=== PATIENT | female | born 1990 | race Caucasian/White ===

== ENCOUNTER 2020-02-26 08:52 | Outpatient (REF) | payer MEDICAID, SELFPAY ==
[2020-02-26 09:24] LABS: MANUAL DIFF FLAG NO
[2020-02-26 09:44] LABS: Basophils Percent Auto 0.4 % (0-2); Eosinophils Absolute Auto 0.2 X10*3/uL (0.0-0.4); Eosinophils Percent Auto 4.7 % (0-4); Hematocrit 35.9 % (37-47); Hemoglobin 11.3 g/dl (12.0-16.0); Imm Gran Abs Auto 0.01 X10*3/uL (0.00-0.03); Imm Gran Pct Auto 0.2 % (0.0-0.4); Lymphocytes Absolute Auto 1.8 X10*3/uL (1.2-4.9); Lymphocytes Percent Auto 39.7 % (20-40); Mean Corpuscular HGB Conc 31.5 g/dl (31.0-35.0); Mean Corpuscular Volume 76.4 fL (80-98); Mean Platelet Volume 11.8 fL (9.4-12.3); Monocytes Absolute Auto 0.5 X10*3/uL (0.1-1.2); Monocytes Percent Auto 11.2 % (2-11); Neutrophils Percent Auto 43.8 % (45-73); Platelet Count 182 X10*3/uL (160-400); Red Cell Distribution Width 16.4 % (11.0-16.0); White Blood Count 4.5 X10*3/uL (4.8-10.8)
[2020-02-26 10:17] LABS: Alanine Aminotransferase 7 U/L (0-31); Albumin Level 4.4 g/dL (3.5-5.0); Alkaline Phosphatase 54 U/L (39-117); Anion Gap 13 (12-20); Aspartate Amino Transferase 14 U/L (5-31); Bilirubin Direct 0.2 mg/dL (0.0-0.5); Bilirubin Total 0.6 mg/dL (0.0-1.0); Blood Urea Nitrogen 12 mg/dL (9-16); Calcium 9.1 mg/dL (8.4-10.2); Carbon Dioxide 26 mmol/L (22-29); Chloride 103 mmol/L (96-108); Estimated Glomerular Filt Rate > 60; Glucose Random 86 mg/dL (60-115); Potassium 4.5 mmol/l (3.3-5.1); Sodium 137 mmol/L (135-145); Total Protein 7.4 g/dL (6.5-8.0)
== END 2020-02-26 08:53 | disposition home or self-care (01) ==
LOC: HO.LAB 08:52
PROVIDERS: PCP Student in an Organized Health Care Education/Training Program; Visit Provider Student in an Organized Health Care Education/Training Program
DX: E03.9 Hypothyroidism, unspecified (principal)
CPT/HCPCS: 36415; 80048; 80076; 85025

== ENCOUNTER 2020-03-26 13:38 | Outpatient (REF) | payer MEDICAID, SELFPAY ==
[2020-03-26 14:57] LABS: Free T4 (Free Thyroxine) 1.03 ng/dL (0.71-1.85); Thyroid Stimulating Hormone 0.93 uIU/mL (0.32-4.0)
== END 2020-03-26 13:39 | disposition home or self-care (01) ==
LOC: HO.LAB 13:38
PROVIDERS: PCP Student in an Organized Health Care Education/Training Program; Visit Provider Student in an Organized Health Care Education/Training Program
DX: E03.9 Hypothyroidism, unspecified (principal)
CPT/HCPCS: 36415; 82306; 84439; 84443

== ENCOUNTER 2020-04-07 12:57 | Outpatient (REF) | payer MEDICAID, SELFPAY ==
--- NOTE | 2020-04-07 | US_ITS ---
EXAMINATION: US THYROID CLINICAL INFORMATION: History of thyroid nodule. COMPARISON: None TECHNIQUE: Linear transducer ivey-scale and color Doppler examination with attention to the region of the thyroid. FINDINGS: SIZE: Measurements of the thyroid lobes and nodules are given in sagittal, anteroposterior and transverse dimensions respectively. Right Thyroid Lobe: 5.7 x 1.5 x 2.5 cm, volume 10.4 mL. Parenchyma: The gland echotexture is heterogeneous. Thyroid vascularity is normal. Left Thyroid Lobe: 6.1 x 1.2 x 1.9 cm, volume 6.9 mL. Parenchyma: The gland echotexture is heterogeneous. Thyroid vascularity is normal. Isthmus: 0.2 cm in maximum AP dimension. RIGHT THYROID LOBE: There are 3 nodules seen. 1. Location: Lower pole. Size: 0.4 x 0.2 x 0.5 cm. Nodule characteristics: Hypoechoic, smoothly marginated with no intranodular flow, likely complex cyst. 2. Location: Lower pole. Size: 0.4 x 0.3 x 0.3 cm. Nodule characteristics: Hypoechoic, smoothly marginated with no intranodular flow, likely complex cyst. 3. Location: Lower pole. Size: 0.4 x 0.2 x 0.3 cm. Nodule characteristics: Hypoechoic, smoothly marginated with no intranodular flow, likely simple cyst. ISTHMUS: No nodules. LEFT THYROID LOBE: There are 3 nodules seen. 1. Location: Upper pole. Size: 0.2 x 0.1 x 0.2 cm. Nodule characteristics: Hypoechoic, irregular-shaped with no intranodular flow.. 2. Location: Midpole. Size: 0.4 x 0.2 x 0.4 cm. Nodule characteristics: Hypoechoic, irregular-shaped with no intranodular flow.. 3. Location: Lower pole. Size: 0.5 x 0.3 x 0.4 cm. Nodule characteristics: Hypoechoic, smoothly marginated with no intranodular flow, likely simple cyst. NODES: No lymphadenopathy is seen in the tissue surrounding the thyroid gland. US/US thyroid IMPRESSION: Enlarged thyroid gland with multiple complex cysts and simple cysts as well. Recommend ultrasound followup in 1-2 years.
== END 2020-04-07 12:58 | disposition home or self-care (01) ==
LOC: HO.US 12:57
PROVIDERS: Visit Provider Emergency Medicine
DX: Z86.39 Personal history of other endocrine, nutritional and metabolic disease (principal)
CPT/HCPCS: 76536

== ENCOUNTER → 2020-04-30 07:49 | Outpatient (BNVA) | payer MEDICAID, SELFPAY | PROVIDERS: PCP Emergency Medicine; Visit Provider Internal Medicine Endocrinology, Diabetes & Metabolism | DX: E04.2 Nontoxic multinodular goiter (principal); R13.10 Dysphagia, unspecified; E55.9 Vitamin D deficiency, unspecified | CPT/HCPCS: 99202 ==

== ENCOUNTER 2020-04-30 08:38 | Outpatient (REF) | payer MEDICAID, SELFPAY ==
[2020-04-30 10:52] LABS: Free T4 (Free Thyroxine) 0.97 ng/dL (0.71-1.85); Thyroid Stimulating Hormone 1.08 uIU/mL (0.32-4.0)
[2020-05-01 10:02] LABS: Thyroglobulin Antibodies 353 IU/mL (< or = 1)
[2020-05-01 17:58] LABS: Thyroid Peroxidase Antibodies 629 IU/mL (<9)
== END 2020-04-30 08:39 | disposition home or self-care (01) ==
LOC: HO.10HDL 08:38
PROVIDERS: Visit Provider Internal Medicine Endocrinology, Diabetes & Metabolism
DX: E04.2 Nontoxic multinodular goiter (principal); R13.10 Dysphagia, unspecified
CPT/HCPCS: 36415; 84439; 84443; 86376; 86800

== ENCOUNTER 2020-06-05 08:30 | Outpatient (REF) | payer MEDICAID, SELFPAY ==
--- NOTE | ~2020-06-05 | FL_ITS ---
EXAMINATION: FL BARIUM SWALLOW CLINICAL INFORMATION: Dysphagia. COMPARISON: None. TECHNIQUE: Barium swallow examination is performed using fluoroscopic evaluation in addition to multiple fluoroscopic spot views. The patient is imaged both upright and prone and using both thick and thin sulfate along with effervescent granules. Fluoroscopy time: 1.3 minutes DAP: 4.170 Gycm2 Images: 52 FINDINGS: Following oral administration of thick barium, there is normal propagation of bolus from the oral cavity through the pharynx and esophagus and into the stomach without any evidence of obstruction, narrowing or stricture. The mucosal pattern of the stomach, duodenal bulb and the sweep is normal. The course, caliber and peristalsis of the esophagus are normal. On placing patient supine and in prone lying, there is minimal gastroesophageal reflux visualized. No hiatal hernia. FL/FL barium swallow IMPRESSION: Suspect minimal gastroesophageal reflux. Otherwise, unremarkable barium swallow exam.
== END 2020-06-05 08:31 | disposition home or self-care (01) ==
LOC: HO.XRAY 08:30
PROVIDERS: PCP Student in an Organized Health Care Education/Training Program; Visit Provider Internal Medicine Endocrinology, Diabetes & Metabolism
DX: R13.10 Dysphagia, unspecified (principal)
CPT/HCPCS: 74220

== ENCOUNTER → 2020-09-11 13:16 | Outpatient (BNVA) | payer MEDICAID, SELFPAY | PROVIDERS: PCP Student in an Organized Health Care Education/Training Program; Visit Provider Internal Medicine Endocrinology, Diabetes & Metabolism | DX: E04.2 Nontoxic multinodular goiter (principal); E55.9 Vitamin D deficiency, unspecified; E06.3 Autoimmune thyroiditis; R13.10 Dysphagia, unspecified | CPT/HCPCS: 99212 ==

== ENCOUNTER 2020-09-17 20:25 | Emergency (ER) | payer MEDICAID, SELFPAY ==
--- NOTE | ~2020-09-17 | XR_ITS ---
EXAMINATION: XR CHEST CLINICAL INFORMATION: Dyspnea COMPARISON: Chest x-ray February 23, 2019 TECHNIQUE: 2 views of the chest were obtained. FINDINGS: Cardiac silhouette is normal in size. Lungs are adequately aerated. No lobar consolidation. No pleural effusion or pneumothorax. Scoliotic changes of the spine. XR/XR chest 2V IMPRESSION: No acute pulmonary pathology.
[2020-09-17 20:37] VITALS: BP 92/69; PULSE 77; RESP 16; TEMP 36.2; O2SAT 99; BMI 23.0
--- NOTE | 2020-09-17 20:45 | ECG_ITS ---
Test Reason : CHEST PAIN Blood Pressure : / mmHG Vent. Rate : 076 BPM Atrial Rate : 076 BPM P-R Int : 132 ms QRS Dur : 082 ms QT Int : 356 ms P-R-T Axes : -24 068 022 degrees QTc Int : 400 ms Normal sinus rhythm Normal ECG No previous ECGs available Referred By: Generic ED Physician Electronically Signed By:SUNITA BURGER MD
== END 2020-09-17 22:36 | disposition left against medical advice (07) ==
PROVIDERS: Emergency Provider Emergency Medicine; PCP Student in an Organized Health Care Education/Training Program
DX: R07.9 Chest pain, unspecified (principal); R11.0 Nausea
CPT/HCPCS: 71046; 93005; 99283

== ENCOUNTER → 2021-01-22 14:35 | Outpatient (BNVA) | payer MEDICAID, SELFPAY | PROVIDERS: PCP Student in an Organized Health Care Education/Training Program; Visit Provider Internal Medicine | DX: E04.2 Nontoxic multinodular goiter (principal); E55.9 Vitamin D deficiency, unspecified; E06.3 Autoimmune thyroiditis | CPT/HCPCS: 99212 ==

== ENCOUNTER 2021-06-24 16:07 | Outpatient (REF) | payer MEDICAID, SELFPAY ==
[2021-06-24 17:36] LABS: Albumin Level 4.4 g/dL (3.5-5.0)
[2021-06-24 18:07] LABS: Free T4 (Free Thyroxine) 0.99 ng/dL (0.71-1.85); Thyroid Stimulating Hormone 1.17 uIU/mL (0.32-4.0); Vitamin D 25-OH Total 22.3 ng/mL (>30)
[2021-06-24 18:10] LABS: Vitamin D 25-OH Total 22.7 ng/mL (>30)
[2021-06-25 15:02] LABS: Calcium (PTHI) 9.2 mg/dL (8.6-10.2); PTHI 62 pg/mL (16-77)
== END 2021-06-24 16:08 | disposition home or self-care (01) ==
LOC: HO.LAB 16:07
PROVIDERS: Absent Provider Internal Medicine; PCP Student in an Organized Health Care Education/Training Program; Visit Provider Nurse Practitioner Gerontology
DX: E04.2 Nontoxic multinodular goiter (principal); E55.9 Vitamin D deficiency, unspecified
CPT/HCPCS: 36415; 82040; 82306; 83970; 84439; 84443

== ENCOUNTER → 2021-06-25 15:17 | Outpatient (BNVA) | payer MEDICAID, SELFPAY | PROVIDERS: PCP Student in an Organized Health Care Education/Training Program; Visit Provider Internal Medicine Endocrinology, Diabetes & Metabolism | DX: E06.3 Autoimmune thyroiditis (principal) | CPT/HCPCS: 99212 ==

== ENCOUNTER 2021-08-10 14:54 | Outpatient (REF) | payer MEDICAID, SELFPAY ==
--- NOTE | ~2021-08-10 | US_ITS ---
EXAMINATION: US PELVIS CLINICAL INFORMATION: Excessive and frequent menses; the last menstrual period was on 08/07/2021. COMPARISON: Pelvic ultrasound dated 12/08/2017. TECHNIQUE: Ultrasound of the pelvis is performed using both transabdominal and transvaginal transducers along with Doppler. Transvaginal imaging is performed due to inadequate visualization transabdominally. FINDINGS: Uterus: The uterus is anteverted and measures 8.5 x 4.0 x 6.5 cm. The uterus is retroverted. The double wall endometrial thickness is 1.2 mm. The uterus is smooth in contour and has normal myometrial echogenicity. No visible fibroid. Adnexa: Both ovaries are visualized. There is normal color flow to the adnexa. There is no ovarian torsion. There is no pelvic ascites or fluid collection. No adnexal mass is seen. Right ovary measures 3.8 x 2.3 x 2.6 cm, for a volume of 11.9 mL. The right ovary contains a 1.5 x 1.0 x 1.2 cm simple cyst. Left ovary measures 2.9 x 1.7 x 2.7 cm, for a volume olume of 6.9 mL. US/US pelvic and transvaginal IMPRESSION: A 1.5 cm simple right ovarian cyst is seen, with benign appearance. No ultrasound follow-up is recommended. The examination is otherwise unremarkable.
== END 2021-08-10 14:55 | disposition home or self-care (01) ==
LOC: HO.US 14:54
PROVIDERS: Visit Provider Advanced Practice Midwife
DX: N20.0 Calculus of kidney (principal)
CPT/HCPCS: 76830; 76856

== ENCOUNTER 2022-01-07 16:54 | Emergency (ER) | payer MEDICAID, SELFPAY ==
[2022-01-07 17:58] VITALS: BP 118/67; PULSE 98; RESP 16; TEMP 36.5; O2SAT 95; BMI 24.3
[2022-01-07 18:12] LABS: Basophils Percent Auto 0.6 % (0-2); Eosinophils Absolute Auto 0.1 X10*3/uL (0.0-0.4); Eosinophils Percent Auto 1.3 % (0-4); Hematocrit 36.4 % (37.0-47.0); Hemoglobin 11.6 g/dl (12.0-16.0); Imm Gran Abs Auto 0.01 X10*3/uL (0.00-0.03); Imm Gran Pct Auto 0.2 % (0.0-0.4); Lymphocytes Absolute Auto 2.1 X10*3/uL (1.2-4.9); Lymphocytes Percent Auto 39.7 % (20-40); MANUAL DIFF FLAG NO; Mean Corpuscular HGB Conc 31.9 g/dl (31.0-35.0); Mean Corpuscular Hemoglobin 24.3 pg (27.0-33.0); Mean Corpuscular Volume 76.2 fL (80.0-98.0); Mean Platelet Volume 11.5 fL (9.4-12.3); Monocytes Absolute Auto 0.7 X10*3/uL (0.1-1.2); Monocytes Percent Auto 13.6 % (2-11); Neutrophils Absolute Auto 2.4 x10*3/uL (2.0-8.3); Neutrophils Percent Auto 44.6 % (45-73); Platelet Count 219 X10*3/uL (160-400); Red Blood Count 4.78 X10*6/uL (4.20-5.50); Red Cell Distribution Width 14.8 % (11.0-16.0); White Blood Count 5.4 X10*3/uL (4.8-10.8)
[2022-01-07 18:31] LABS: Alanine Aminotransferase 8 U/L (0-31); Albumin Level 4.6 g/dL (3.5-5.0); Alkaline Phosphatase 61 U/L (39-117); Anion Gap 15 (12-20); Aspartate Amino Transferase 15 U/L (5-31); Bilirubin Total 0.4 mg/dL (0.0-1.0); Blood Urea Nitrogen 10 mg/dL (9-16); Calcium 9.6 mg/dL (8.4-10.2); Carbon Dioxide 27 mmol/L (22-29); Chloride 101 mmol/L (96-108); Creatinine Clr Calc Pharmacy 106.2; Estimated Glomerular Filt Rate > 60; Glucose Random 80 mg/dL (60-115); Potassium 4.1 mmol/L (3.3-5.1); Sodium 139 mmol/L (135-145); Total Protein 7.7 g/dL (6.5-8.0)
[2022-01-07 19:00] LABS: Appearance Urine Clear; Color Urine Yellow; Glucose Urine UA Negative (Negative); Leukocyte Esterase Urine Negative (Negative); Nitrite Urine Negative (Negative); Specific Gravity - Urine 1.015 (1.005-1.025); Urine Blood Negative (Negative); Urine Ketones Negative (Negative); Urine Protein Negative (Neg-Trace)
[2022-01-07 19:02] LABS: UPreg QC Valid YES; Urine Pregnancy NEGATIVE (NEGATIVE)
--- NOTE | 2022-01-07 21:30 | ED.BACK ---
HPI - Back Pain/Injury General Chief Complaint: Back Pain/Injury Stated Complaint: ?Kidney pain Time Seen by Provider: 01/07/22 21:12 Source: patient Mode of arrival: ambulatory Limitations: no limitations History of Present Illness HPI Narrative: 31-year-old female who presents with left lower back pain with radiation to the left hip the last 3 days with no known injury or trauma. Patient also reports some cramping in her left thigh with the pain. Patient denies any numbness in the groin. No bowel or bladder incontinence. No numbness, weakness, tingling lower extremities. Patient denies fevers or chills. Patient does report some discomfort when she urinates. No new sexual partners. She is sexually active with 1 male partner. No vaginal discharge, rashes or lesions Related Data Previous Rx's Medication Instructions Recorded cyclobenzaprine 10 mg tablet 10 mg PO TID PRN muscle spasm #10 01/07/22 tabs lidocaine 5 % topical patch 1 patch topical DAILY #15 ea 01/07/22 (Lidoderm) naproxen 500 mg tablet 500 mg PO BID PRN pain #30 tabs 01/07/22 Allergies Allergy/AdvReac Type Severity Reaction Status Date / Time SEAFOOD Allergy Severe ANGIOEDEMA Uncoded 06/25/21 15:23 Review of Systems Review of Systems: Yes all other systems are reviewed and are negative Constitutional: Constitutional: Reports no additional constitutional complaints, Denies body ache(s), Denies chills, Denies fever(s), Denies headache(s) and Denies weakness Eyes: Eyes: Reports no additional eye complaints and Denies change in vision ENT: Reports system reviewed and no additional complaints, except as documented, Denies dizziness, Denies headache(s), Denies nasal congestion, Denies nasal discharge and Denies neck pain Cardiovascular: Cardiovascular: Reports no additional cardiovascular complaints, Denies chest pain, Denies leg edema and Denies dyspnea Respiratory: Respiratory: Reports no additional respiratory complaints, Denies cough and Denies dyspnea Gastrointestinal: Gastrointestinal: Reports no additional gastrointestinal complaints, Denies abdominal pain, Denies diarrhea, Denies nausea and Denies vomiting Genitourinary: Genitourinary: Reports no additional female genitourinary complaints and Denies urinary incontinence Musculoskeletal: Musculoskeletal: Reports no additional musculoskeletal complaints, Reports back pain, Denies arthralgias, Denies joint swelling, Denies neck pain, Denies numbness and Denies tingling Integumentary/Breasts: Skin/Breast: Reports system reviewed and no additional complaints, except as docu and Denies rash Neurologic: Reports system reviewed and no additional complaints, except as documented, Denies Abnormal speech present, Denies dizziness, Denies headache(s), Denies numbness, Denies tingling and Denies weakness PMFSH Past Medical History Attestation statement: The following information was validated with the patient. Source: old records reviewed and nursing notes reviewed Medical History Dysphagia Harpal's disease Non-toxic multinodular goiter Vitamin D deficiency Surgical History Hx of section Family History Family History Father HTN (hypertension) Mother Arthritis Social History Social History Alcohol intake: never Patient Tobacco Use Status: Never used Tobacco Advance Directives: No Advance Directives Information Provided: No Physical Exam Vital Signs: Vital Signs: Last Vital Signs Temp 97.7 F 01/07/22 17:58 Pulse 98 01/07/22 17:58 Resp 16 01/07/22 17:58 BP 118/67 01/07/22 17:58 Pulse Ox 95 01/07/22 17:58 O2 Del Method 01/07/22 17:58 BMI result Body Mass Index 24.3 Const: General: cooperative, healthy appearing, comfortable and no acute distress Orientation/consciousness: patient oriented x3 Limitations: no limitations HEENT: Head: Yes normal to inspection Ears: hearing grossly normal bilaterally General nose exam: Normal external nose present Face and sinus: Yes normal facial exam Mouth: Normal oral and palatal mucosa present Throat: Yes posterior oropharynx normal Eyes: General: appearance normal, both eyes and all related structures Pupils: Equal, round and reactive pupils present Neck: Neck: Yes normal visual inspection Chest: Chest palpation & inspection: normal inspection of the chest Resp: Effort & Inspection: normal respiratory effort Auscultation: clear to auscultation bilaterally Cardio: Rate: regular rate Rhythm: regular rhythm Peripheral pulses: Peripheral pulses 2+ throughout GI: Inspection: Yes normal to inspection Palpation (GI): Soft to palpation and nontender Auscultation: normal bowel sounds : General: Yes no CVA tenderness Back/Spine/Pelvis: Other: Tenderness the lumbar soft tissue in the left side and over the posterior left SI joint with compression is worsened with straight leg raise on the left side Back: no CVA tenderness Thoracic/Lumbar Spine: thoracic and lumbar spine normal to inspection Skin: General skin exam: no rashes or lesions noted Neuro: General: patient oriented x3, no focal motor deficits and normal sensation to monofilament Cranial nerves: Yes CN's II-XII intact bilaterally, Yes Equal, round and reactive pupils present, Yes Bilaterally intact EOM present, Yes Nystagmus not present, Yes Normal facial strength present and Yes Midline tongue present Cognition (Neuro): normal cognition Speech: No Abnormal speech present Gait exam (Neuro): Normal gait present Motor exam (neuro): 5/5 motor strength present throughout Sensory Exam: Normal double simultaneous stimulation for sensation Extrem: General: Yes normal to inspection Course Course Course Narrative: Labs unremarkable. UA shows no signs of infection. Patient is not concern for STD exposure. Likely lumbar radiculopathy. Patient be discharged home with NSAID, muscle relaxant medicated patches. Reviewed worrisome signs and symptoms when to return to the emergency room. Comfortable discharge home MDM - Back Pain/Injury MDM Narrative Medical decision making narrative: 31 yo female here with 3 days of left lower back pain which radiates to the groin and into the left thigh. No focal abdominal pain on exam. Abdomen is soft nontender. Patient reports some discomfort with urination but no frequency, urgency, vaginal discharge, rashes or lesions. Normal neurological exam with no focal findings. Will check labs, UA, provide analgesia Likely lumbar radiculopathy, consider UTI, pyelo, renal colic Medical Records Attestation: I reviewed the patient's medical records. Lab Data Attestation: I reviewed the patient's lab results. Result diagrams: 01/07/22 18:07 01/07/22 18:07 Labs: Lab Results 01/07/22 01/07/22 01/07/22 Range/Units 18:07 18:07 18:52 WBC 5.4 (4.8-10.8) X10*3/uL RBC 4.78 (4.20-5.50) X10*6/uL Hgb 11.6 L (12.0-16.0) g/dl Hct 36.4 L (37.0-47.0) % MCV 76.2 L (80.0-98.0) fL MCH 24.3 L (27.0-33.0) pg MCHC 31.9 (31.0-35.0) g/dl RDW 14.8 (11.0-16.0) % Plt Count 219 (160-400) X10*3/uL MPV 11.5 (9.4-12.3) fL Immature Gran % (Auto) 0.2 (0.0-0.4) % Neut % (Auto) 44.6 L (45-73) % Lymph % (Auto) 39.7 (20-40) % [place] % (Auto) 13.6 H (2-11) % Eos % (Auto) 1.3 (0-4) % Baso % (Auto) 0.6 (0-2) % Lymph # (Auto) 2.1 (1.2-4.9) X10*3/uL [place] # (Auto) 0.7 (0.1-1.2) X10*3/uL Eos # (Auto) 0.1 (0.0-0.4) X10*3/uL Baso # (Auto) 0.0 (0.0-0.2) X10*3/uL Abs Immat Gran (auto) 0.01 (0.00-0.03) X10*3/uL Absolute Neuts (auto) 2.4 (2.0-8.3) x10*3/uL Absolute Nucleated RBC 0.000 (0.0-0.012) X10*3/uL Nucleated RBC % (auto) 0.0 (0.0-0.2) /100WBC Sodium 139 (135-145) mmol/L Potassium 4.1 (3.3-5.1) mmol/L Chloride 101 (96-108) mmol/L Carbon Dioxide 27 (22-29) mmol/L Anion Gap 15 (12-20) BUN 10 (9-16) mg/dL Creatinine 0.76 (0.5-1.4) mg/dL Estim Creat Clear Calc 106.2 Estimated GFR > 60 Random Glucose 80 (60-115) mg/dL Calcium 9.6 (8.4-10.2) mg/dL Total Bilirubin 0.4 (0.0-1.0) mg/dL AST 15 (5-31) U/L ALT 8 (0-31) U/L Alkaline Phosphatase 61 (39-117) U/L Total Protein 7.7 (6.5-8.0) g/dL Albumin 4.6 (3.5-5.0) g/dL Urine Color Yellow Urine Appearance Clear Urine pH 7.0 (5.0-9.0) Ur Specific [place] 1.015 (1.005-1.025) Urine Protein Negative (Neg-Trace) mg/dL Urine Glucose (UA) Negative (Negative) mg/dL Urine Ketones Negative (Negative) mg/dL Urine Blood Negative (Negative) Urine Nitrite Negative (Negative) Ur Leukocyte Esterase Negative (Negative) Urine Test (NEGATIVE) 01/07/22 Range/Units 18:52 WBC (4.8-10.8) X10*3/uL RBC (4.20-5.50) X10*6/uL Hgb (12.0-16.0) g/dl Hct (37.0-47.0) % MCV (80.0-98.0) fL MCH (27.0-33.0) pg MCHC (31.0-35.0) g/dl RDW (11.0-16.0) % Plt Count (160-400) X10*3/uL MPV (9.4-12.3) fL Immature Gran % (Auto) (0.0-0.4) % Neut % (Auto) (45-73) % Lymph % (Auto) (20-40) % [place] % (Auto) (2-11) % Eos % (Auto) (0-4) % Baso % (Auto) (0-2) % Lymph # (Auto) (1.2-4.9) X10*3/uL [place] # (Auto) (0.1-1.2) X10*3/uL Eos # (Auto) (0.0-0.4) X10*3/uL Baso # (Auto) (0.0-0.2) X10*3/uL Abs Immat Gran (auto) (0.00-0.03) X10*3/uL Absolute Neuts (auto) (2.0-8.3) x10*3/uL Absolute Nucleated RBC (0.0-0.012) X10*3/uL Nucleated RBC % (auto) (0.0-0.2) /100WBC Sodium (135-145) mmol/L Potassium (3.3-5.1) mmol/L Chloride (96-108) mmol/L Carbon Dioxide (22-29) mmol/L Anion Gap (12-20) BUN (9-16) mg/dL Creatinine (0.5-1.4) mg/dL Estim Creat Clear Calc Estimated GFR Random Glucose (60-115) mg/dL Calcium (8.4-10.2) mg/dL Total Bilirubin (0.0-1.0) mg/dL AST (5-31) U/L ALT (0-31) U/L Alkaline Phosphatase (39-117) U/L Total Protein (6.5-8.0) g/dL Albumin (3.5-5.0) g/dL Urine Color Urine Appearance Urine pH (5.0-9.0) Ur Specific [place] (1.005-1.025) Urine Protein (Neg-Trace) mg/dL Urine Glucose (UA) (Negative) mg/dL Urine Ketones (Negative) mg/dL Urine Blood (Negative) Urine Nitrite (Negative) Ur Leukocyte Esterase (Negative) Urine Test NEGATIVE (NEGATIVE) Discharge Plan Discharge Clinical Impression: Lumbar radiculopathy Patient Disposition: Home, Self-Care Instructions: Lumbar Radiculopathy (ED) Additional Instructions: Lab work and urine testing are normal Heat or ice to the area Gentle stretching No heavy lifting or bending Follow-up with primary care doctor for any persistent symptoms Prescriptions: New cyclobenzaprine 10 mg tablet 10 mg PO TID PRN (Reason: muscle spasm) Qty: 10 0RF naproxen 500 mg tablet 500 mg PO BID PRN (Reason: pain) Qty: 30 0RF lidocaine [Lidoderm] 5 % adhesive patch,medicated 1 patch topical DAILY Qty: 15 0RF Rx Instructions: leave on most painful area for up to 12 hrs Referrals: Angela Gonzalez MD [Primary Care Provider] - 5 days Stand Alone Forms: Work/School Release Discharge Date/Time: 01/07/22 23:00
[2022-01-07] MEDS: Ketorolac Tromethamine 60 MG/2 ML VIAL IM (22:03)
== END 2022-01-07 23:00 | disposition home or self-care (01) ==
PROVIDERS: Emergency Provider Emergency Medicine; PCP Student in an Organized Health Care Education/Training Program
DX: M54.16 Radiculopathy, lumbar region (principal); M25.552 Pain in left hip; Z79.899 Other long term (current) drug therapy
CPT/HCPCS: 36415; 80053; 81003; 81025; 85025; 96372; 99283; 99284; J1885

== ENCOUNTER 2022-02-03 15:39 | Outpatient (REF) | payer MEDICAID, SELFPAY ==
--- NOTE | ~2022-02-03 | XR_ITS ---
EXAMINATION: XR LUMBOSACRAL SPINE CLINICAL INFORMATION: Low back pain COMPARISON: Lumbar spine 12/27/2017. TECHNIQUE: Three views of the lumbosacral spine. FINDINGS: There is maintained lumbar lordosis. There is mild dextro scoliosis of thoracolumbar junction. The vertebral heights, alignment and disc heights are normal. No visible acute fracture, dislocation or lytic process seen. The SI joints are symmetrical. The paravertebral soft tissues are normal. XR/XR lumbar spine 2-3V IMPRESSION: Mild dextroscoliosis of thoracolumbar junction. No visible acute fracture, dislocation or lytic process seen. No change from previous lumbar spine exam 12/27/2017
--- NOTE | ~2022-02-03 | XR_ITS ---
EXAMINATION: XR SCOLIOSIS CLINICAL INFORMATION: Scoliosis COMPARISON: No direct comparisons. Correlation made with radiographs of the thoracic spine and lumbar spine dated 12/27/2017. TECHNIQUE: A single PA view of the thoracolumbar spine is obtained. FINDINGS: There are no intrinsic vertebral anomalies. There is spinal curvature as follows: Left convex thoracic curvature of 19 degrees, apex at T7-T8. Right convex thoracolumbar curvature of 36 degrees, apex at L1. There is no significant iliac crest height discrepancy. Risser 5. XR/XR scoliosis survey IMPRESSION: Spinal curvature as described.
== END 2022-02-03 15:40 | disposition home or self-care (01) ==
LOC: HO.XRAY 15:39
PROVIDERS: PCP Student in an Organized Health Care Education/Training Program; Visit Provider Internal Medicine
DX: M54.50 Low back pain, unspecified (principal); M54.6 Pain in thoracic spine; M41.9 Scoliosis, unspecified
CPT/HCPCS: 72082; 72100

== ENCOUNTER 2022-04-13 16:36 | Emergency (ER) | payer MEDICAID, SELFPAY ==
[2022-04-13 16:38] VITALS: BP 133/87; PULSE 88; RESP 20; TEMP 36.6; O2SAT 100; BMI 24.1
--- NOTE | 2022-04-13 16:39 | ED_ITS ---
HPI - Anxiety General Chief Complaint: General Medical Stated Complaint: Panic attack Related Data Previous Rx's Medication Instructions Recorded cyclobenzaprine 10 mg tablet 10 mg PO TID PRN muscle spasm #10 01/07/22 tabs lidocaine 5 % topical patch 1 patch topical DAILY #15 ea 01/07/22 (Lidoderm) naproxen 500 mg tablet 500 mg PO BID PRN pain #30 tabs 01/07/22 Allergies Allergy/AdvReac Type Severity Reaction Status Date / Time SEAFOOD Allergy Severe ANGIOEDEMA Uncoded 06/25/21 15:23 PMFSH Past Medical History Medical History Dysphagia Harpal's disease Non-toxic multinodular goiter Vitamin D deficiency Surgical History Hx of section Family History Family History Father HTN (hypertension) Mother Arthritis Social History Social History Alcohol intake: never Patient Tobacco Use Status: Never used Tobacco Advance Directives: No Advance Directives Information Provided: No Physical Exam Vital Signs: Vital Signs: Last Vital Signs Temp 97.9 F 04/13/22 16:38 Pulse 88 04/13/22 16:38 Resp 20 04/13/22 16:38 BP 133/87 04/13/22 16:38 Pulse Ox 100 04/13/22 16:38 O2 Del Method 04/13/22 16:38 BMI result Body Mass Index 24.1 Course Course Course Narrative: RME - 31 y/o Turkish speaking female with history of Hasimoto's disease s/p thyroidectomy who is presenting to the ER for evaluation of increased anxiety today. Not on meds at home. Reports associated chest pain and SOB as well as dizziness that has since resolved. VSS in triage and she appears well. She states she is no longer taking thyroid medication. Will check basic labs and TSH. Discharge Plan Discharge Clinical Impression: Anxiety Patient Disposition: Elopement Prescriptions: No Action cyclobenzaprine 10 mg tablet 10 mg PO TID PRN (Reason: muscle spasm) Qty: 10 0RF naproxen 500 mg tablet 500 mg PO BID PRN (Reason: pain) Qty: 30 0RF lidocaine [Lidoderm] 5 % adhesive patch,medicated 1 patch topical DAILY Qty: 15 0RF Rx Instructions: leave on most painful area for up to 12 hrs Discharge Date/Time: 04/13/22 21:29
== END 2022-04-13 21:29 | disposition left against medical advice (07) ==
LOC: HO.ED 21:27
PROVIDERS: Emergency Provider Emergency Medicine; PCP Student in an Organized Health Care Education/Training Program
DX: F41.0 Panic disorder [episodic paroxysmal anxiety] (principal); F41.1 Generalized anxiety disorder; F43.0 Acute stress reaction
CPT/HCPCS: 99281; 99283

== ENCOUNTER → 2022-05-20 15:38 | Outpatient (BNVA) | payer MEDICAID, SELFPAY | PROVIDERS: PCP Student in an Organized Health Care Education/Training Program; Visit Provider Internal Medicine Endocrinology, Diabetes & Metabolism | DX: E04.2 Nontoxic multinodular goiter (principal); E06.3 Autoimmune thyroiditis; E55.9 Vitamin D deficiency, unspecified; Z79.52 Long term (current) use of systemic steroids; Z79.899 Other long term (current) drug therapy; Z91.14 Patient's other noncompliance with medication regimen | CPT/HCPCS: 99212 ==

== ENCOUNTER 2022-06-29 07:08 | Emergency (ER) | payer MEDICAID, SELFPAY ==
--- NOTE | ~2022-06-29 | US_ITS ---
EXAMINATION: US OBSTETRICAL ULTRASOUND CLINICAL INFORMATION: Abdominal pain. 6 weeks . COMPARISON: None available.. LMP: 05/15/2022. Gestational age by maternal dates is 6 weeks 3 days. Estimated date of delivery by maternal dates is 02/19/2023. TECHNIQUE: Transabdominal and transvaginal first trimester OB ultrasound. Transvaginal exam was performed for better visualization of the gestational sac. FINDINGS: There is a single intrauterine gestational sac with visible yolk sac, embryo/fetus, and cardiac activity. There is no significant subchorionic hemorrhage or hematoma. HR: 110 beats per minute. CRL (crown rump length): 0.32 cm (6 weeks 0 days +/- 4 days). LAMBERTO (estimated date of delivery): 02/22/2023 +/- 4 days. MATERNAL ADNEXA: The right maternal ovary measures 3.5 x 2.6 x 2.9 cm. 1.7 x 2 x 1.7 cm cyst probably representing a corpus luteum The left maternal ovary measures 4.7 x 2 x 3.2 cm. There is no significant maternal adnexal mass. No maternal pelvic ascites. US/US OB pelvic and transvaginal IMPRESSION: 1. Single intrauterine gestation with ultrasound gestational age of 6 weeks 0 days +/- 4 days. 2. Estimated date of delivery is 02/22/2023 +/- 4 days. 3. No maternal adnexal mass or pelvic ascites.
[2022-06-29 07:49] VITALS: BP 107/65; PULSE 95; RESP 16; TEMP 36.8; O2SAT 100; BMI 25.0
--- NOTE | 2022-06-29 08:01 | ED.GENADULT ---
HPI - General Adult General Chief complaint: Nausea/Vomiting/Diarrhea Stated complaint: 6 wks preg/Vomiting/Dizziness Time Seen by Provider: 06/29/22 07:58 Source: patient Mode of arrival: ambulatory Limitations: no limitations History of Present Illness HPI narrative: Patient is a 31 year old assigned female at with a history of neel's disease presenting to the emergency department today with nausea and vomiting. Patient states that she is 6 weeks and over the last 24 hours has had mild abdominal pain with nausea and vomiting. Patient denies any dizziness, lightheadedness, fever, chills, blurry vision, double vision, loss of vision, chest pain, difficulty breathing, shortness of breath, back pain, night sweats, pain with urination, increased urinary frequency, increased urinary urgency, blood in her urine or stool, syncope or a near syncopal episode, recent trauma or falls, bowel incontinence, bladder incontinence, bowel retention, bladder retention, or any other complaints at this time. Onset (ago): day(s) Severity: mild Severity scale (1-10): 2 Relieving factors: none Exacerbating factors: none Associated symptoms: nausea/vomiting Treatments prior to arrival: none Related Data Home Medications Medication Instructions Recorded Confirmed doxycycline hyclate 100 mg tablet 100 mg PO BID 05/20/22 empty container (Sharps Container) miscellaneous 05/20/22 enoxaparin 30 mg/0.3 mL 30 mg subcut DAILY 05/20/22 subcutaneous syringe estradiol 2 mg tablet 2 mg PO BID 05/20/22 fatty acid no.6-fish ml IV 05/20/22 put-ybpvoxxs-bxfyhnsclpzzq, egg 10 % IV emulsion (Omegaven) follitropin beta 300 unit/0.36 mL 150 unit subcut QPM 05/20/22 subcutaneous cartridge (Follistim AQ) ganirelix 250 mcg/0.5 mL mcg subcut DAILY 05/20/22 subcutaneous syringe meloxicam 15 mg tablet 15 mg PO DAILY 05/20/22 metformin 500 mg tablet,extended 500 mg PO DAILY 05/20/22 release 24 hr methocarbamol 500 mg tablet 500 mg PO QID 05/20/22 morphine ER 80 mg-naltrexone 3.2 1 cap PO 05/20/22 mg capsule, extend release, oral only needle (disp) 22 G 22 gauge x 1 #1,000 ea 05/20/2203/22 (BD Regular Bevel Avilla) prednisone 5 mg tablet 5 mg PO BID 05/20/22 syringe with needle 3 mL 18 x 1 #100 ea 05/20/2203/22 (BD Luer-Devin Syringe) Previous Rx's Medication Instructions Recorded cyclobenzaprine 10 mg tablet 10 mg PO TID PRN muscle spasm #10 01/07/22 tabs lidocaine 5 % topical patch 1 patch topical DAILY #15 ea 01/07/22 (Lidoderm) naproxen 500 mg tablet 500 mg PO BID PRN pain #30 tabs 01/07/22 metoclopramide HCl 10 mg tablet 10 mg PO Q6H PRN nausea and 06/29/22 (Reglan) vomiting #10 tabs Allergies Allergy/AdvReac Type Severity Reaction Status Date / Time SEAFOOD Allergy Severe ANGIOEDEMA Uncoded 05/20/22 15:45 Review of Systems Constitutional: Constitutional: Reports no additional constitutional complaints, Denies chills, Denies fever(s) and Denies night sweats Eyes: Eyes: Reports no additional eye complaints, Denies blurry vision, Denies change in vision, Denies diplopia, Denies eye discharge, Denies loss of vision and Denies eye pain ENT: Denies dizziness Cardiovascular: Cardiovascular: Reports no additional cardiovascular complaints, Denies chest pain, Denies lightheadedness, Denies Loss of Consciousness and Denies dyspnea Respiratory: Respiratory: Reports no additional respiratory complaints and Denies dyspnea Gastrointestinal: Gastrointestinal: Reports no additional gastrointestinal complaints, Reports abdominal pain, Denies melena, Denies hematochezia, Denies change in bowel habits, Denies change in stool character, Reports nausea and Reports vomiting Genitourinary: Genitourinary: Denies hematuria, Denies urinary frequency, Denies dysuria, Denies urinary incontinence, Denies urinary hesitancy and Denies urinary urgency Musculoskeletal: Musculoskeletal: Reports no additional musculoskeletal complaints, Denies numbness and Denies tingling Neurologic: Denies dizziness, Denies loss of vision, Denies numbness and Denies tingling Psychiatric: Psychiatric: Reports no additional psychiatric complaints Endocrine: Endocrine: Reports no additional endocrine complaints Hematologic/Lymphatic: Hematologic/Lymphatic: Reports no additional hematologic/lymphatic complaints Allergic/Immunologic: Allergic/Immunologic: Reports no additional allergic/immunologic complaints PMFSH Past Medical History Attestation statement: The following information was validated with the patient. Source: old records reviewed and nursing notes reviewed Medical History Dysphagia Neel's disease Non-toxic multinodular goiter Vitamin D deficiency Surgical History Hx of section Family History Family History Father HTN (hypertension) Mother Arthritis Social History Social History Household Members: Children Alcohol intake: unknown Patient Tobacco Use Status: Never used Tobacco Use of substances other than those prescribed or required for medical reasons: Unknown Advance Directives: No Advance Directives Information Provided: Yes Patient : Yes Physical Exam ED Vital Signs: Vital Signs - 24 hr 06/29/22 07:49 Temperature 98.3 F Pulse Rate 95 Respiratory Rate 16 Blood Pressure 107/65 Pulse Oximetry 100 Oxygen Delivery Method Room Air BMI result Body Mass Index 25.0 Const General: cooperative, no acute distress, alert and awake Nutritional Appearance: well nourished Orientation/consciousness: patient oriented x3 Limitations: no limitations HENMT Head: Yes normal to inspection and Yes atraumatic Ears: hearing grossly normal bilaterally and external ears normal General nose exam: Normal external nose present, no nasal discharge noted and no epistaxis Face and sinus: Yes normal facial exam, No abrasion and No laceration Mouth: Normal oral and palatal mucosa present, no drooling and no muffled voice Eyes General: appearance normal, both eyes and all related structures Periorbital: periorbital findings normal Eyelids: Yes eyelids normal Conjunctivae: conjunctivae normal Pupils: Equal, round and reactive pupils present EOM: EOMs intact bilaterally Neck Neck: Yes normal visual inspection, Yes full ROM and Yes no lymphadenopathy Chest Chest palpation & inspection: normal inspection of the chest Resp Effort & Inspection: normal respiratory effort and able to speak in complete sentences GI Inspection: Yes normal to inspection Neuro General: patient oriented x3 and moves all extremities Cranial nerves: Yes Equal, round and reactive pupils present Cognition (Neuro): normal cognition Motor exam (neuro): 5/5 motor strength present throughout Sensory Exam: Normal double simultaneous stimulation for sensation Coordination: [id number] test normal Extrem General: Yes normal to inspection, Yes full ROM and Yes capillary refill normal Psych Appearance: grossly normal Mental Status: mental status grossly normal Affect: normal affect Attitude: cooperative Thought process: Normal thought process present Thought content: Normal thought content present Insight: Good insight present (Psych) Medications Administered Discontinued Medications Generic Name Dose Route Start Last Admin Trade Name Lindsay PRN Reason Stop Dose Admin Sodium Chloride 1,000 mls @ 999 mls/hr 06/29/22 08:15 06/29/22 09:30 Ns IV 06/29/22 09:15 Infused .Q1H1M KENAN Infusion Ondansetron HCl 4 mg 06/29/22 08:02 06/29/22 08:25 Ondansetron Hcl 4 Mg/2 Ml Vial IVPUSH 06/29/22 08:03 4 mg ONCE ONE Administration Medical Decision Making Medical Decision Making [facility] Narrative: Patient is a 31 year old assigned female at with a history of neel's disease presenting to the emergency department today with nausea, vomiting, and vague abdominal pain. Patient's physical exam was unremarkable. Patient's blood work was unremarkable. Patient's OB US showed an interuterine and no acute process. I explained my physical exam findings as well as all test results to the patient. I answered all questions asked by the patient. I stressed the importance of the patient taking her medication as prescribed. I stressed the importance of the patient following up with her primary care provider and her OBGYN. I stressed the importance of the patient returning to the emergency department immediately if her symptoms were to worsen or if she were to develop any dizziness, shortness of breath, difficulty breathing, chest pain, blurry vision, loss of vision, nausea, vomiting, abdominal pain, fever, chills, back pain, or any other complaints. Patient verbalized agreement and understanding with this treatment plan and discharge. Differential Diagnosis Differential Diagnoses: The differential diagnosis associated with the presentation includes , nausea, vomiting Lab Data [facility] Lab Attestation statement: I reviewed the patient's lab results. 06/29/22 08:15 06/29/22 08:15 Labs: Lab Results 06/29/22 06/29/22 06/29/22 Range/Units 07:00 08:15 08:15 WBC 5.9 (4.8-10.8) X10*3/uL RBC 5.09 (4.20-5.50) X10*6/uL Hgb 12.9 (12.0-16.0) g/dl Hct 39.6 (37.0-47.0) % MCV 77.8 L (80.0-98.0) fL MCH 25.3 L (27.0-33.0) pg MCHC 32.6 (31.0-35.0) g/dl RDW 20.5 H (11.0-16.0) % Plt Count 177 (160-400) X10*3/uL MPV 10.5 (9.4-12.3) fL Immature Gran % (Auto) 0.3 (0.0-0.4) % Neut % (Auto) 74.9 H (45-73) % Lymph % (Auto) 14.4 L (20-40) % [place] % (Auto) 8.7 (2-11) % Eos % (Auto) 1.4 (0-4) % Baso % (Auto) 0.3 (0-2) % Lymph # (Auto) 0.9 L (1.2-4.9) X10*3/uL [place] # (Auto) 0.5 (0.1-1.2) X10*3/uL Eos # (Auto) 0.1 (0.0-0.4) X10*3/uL Baso # (Auto) 0.0 (0.0-0.2) X10*3/uL Abs Immat Gran (auto) 0.02 (0.00-0.03) X10*3/uL Absolute Neuts (auto) 4.4 (2.0-8.3) x10*3/uL Absolute Nucleated RBC 0.000 (0.0-0.012) X10*3/uL Nucleated RBC % (auto) 0.0 (0.0-0.2) /100WBC Sodium 138 (135-145) mmol/L Potassium 4.1 (3.3-5.1) mmol/L Chloride 104 (96-108) mmol/L Carbon Dioxide 27 (22-29) mmol/L Anion Gap 11 L (12-20) BUN 10 (9-16) mg/dL Creatinine 0.73 (0.5-1.4) mg/dL Estim Creat Clear Calc 110.5 Estimated GFR > 60 Random Glucose 86 (60-115) mg/dL Calcium 8.9 D (8.4-10.2) mg/dL Magnesium 2.0 (1.6-2.6) mg/dL Total Bilirubin 0.6 (0.0-1.0) mg/dL AST 18 (5-31) U/L ALT 41 H (0-31) U/L Alkaline Phosphatase 59 (39-117) U/L Total Protein 6.7 (6.5-8.0) g/dL Albumin 3.9 (3.5-5.0) g/dL Beta HCG, Quant 69811 mIU/mL COVID-19 (ASHISH) Negative (Negative) COVID-19 Clin Com See Note Independent Interpretation I performed an independent interpretation of an: Ultrasound Interpretation: My interpretation is in agreement with the radiologist's impression of this imaging study. EXAMINATION:? US OBSTETRICAL ULTRASOUND CLINICAL INFORMATION:? Abdominal pain. 6 weeks . COMPARISON:? None available..? LMP: 05/15/2022. Gestational age by maternal dates is 6 weeks 3 days. Estimated date of delivery by maternal dates is 02/19/2023. TECHNIQUE: Transabdominal and transvaginal first trimester OB ultrasound. Transvaginal exam was performed for better visualization of the gestational sac. ? FINDINGS: There is a single intrauterine gestational sac with visible yolk sac, embryo/fetus, and cardiac activity.? There is no significant subchorionic hemorrhage or hematoma. HR:? 110 beats per minute. CRL (crown rump length): ? 0.32 cm (6 weeks 0 days +/- 4 days). LAMBERTO (estimated date of delivery):? 02/22/2023 +/- 4 days. ? MATERNAL ADNEXA: ? ? The right maternal ovary measures 3.5 x 2.6 x 2.9 cm.? 1.7 x 2 x 1.7 cm cyst probably representing a corpus luteum The left maternal ovary measures 4.7 x 2 x 3.2 cm. There is no significant maternal adnexal mass.? No maternal pelvic ascites. US/US OB pelvic and transvaginal IMPRESSION: 1. Single intrauterine gestation with ultrasound gestational age of? 6 weeks 0 days +/- 4 days. 2. Estimated date of delivery is 02/22/2023 +/- 4 days. 3. No maternal adnexal mass or pelvic ascites. Dictated By: Lindsay Calderon MD Signed By: Electronically signed by Lindsay Calderon MD 06/29/22 0948 Discharge Plan Discharge Clinical Impression: First trimester Patient Disposition: Home, Self-Care Instructions: (ED) Additional Instructions: Follow up with your primary care provider and your OBGYN. Return to the emergency department immediately if your symptoms worsen or if you develop any dizziness, shortness of breath, difficulty breathing, chest pain, blurry vision, loss of vision, nausea, vomiting, abdominal pain, fever, chills, back pain, or any other complaints. Charis un seguimiento con simms proveedor de atenci?n primaria y simms obstetra y ginec?logo. Regrese al departamento de emergencias de inmediato si marycarmen s?ntomas empeoran o si presenta mareos, falta de aire, dificultad para respirar, dolor de pecho, visi?n borrosa, p?rdida de la visi?n, n?useas, v?mitos, dolor abdominal, fiebre, escalofr?os, dolor de espalda o cualquier otras quejas. Prescriptions: New metoclopramide HCl [Reglan] 10 mg tablet 10 mg PO Q6H PRN (Reason: nausea and vomiting) Qty: 10 0RF No Action cyclobenzaprine 10 mg tablet 10 mg PO TID PRN (Reason: muscle spasm) Qty: 10 0RF naproxen 500 mg tablet 500 mg PO BID PRN (Reason: pain) Qty: 30 0RF lidocaine [Lidoderm] 5 % adhesive patch,medicated 1 patch topical DAILY Qty: 15 0RF Rx Instructions: leave on most painful area for up to 12 hrs Follistim AQ 300 unit/0.36 mL cartridge 150 unit subcut QPM Omegaven 10 % emulsion IV ganirelix 250 mcg/0.5 mL syringe subcut DAILY enoxaparin 30 mg/0.3 mL syringe 30 mg subcut DAILY (DME) BD Regular Bevel Avilla 22 gauge x 1 1/2 needle See Rx Instructions .ROUTE .MEDSUPPLY Qty: 1000 Rx Instructions: As directed estradiol 2 mg tablet 2 mg PO BID prednisone 5 mg tablet 5 mg PO BID (DME) BD Luer-Devin Syringe 3 mL 18 x 1 1/2 syringe See Rx Instructions .ROUTE .MEDSUPPLY Qty: 100 Rx Instructions: As directed meloxicam 15 mg tablet 15 mg PO DAILY methocarbamol 500 mg tablet 500 mg PO QID morphine-naltrexone 80-3.2 mg capsule,oral only,ext.rel abhinav 1 cap PO metformin 500 mg tablet extended release 24 hr 500 mg PO DAILY doxycycline hyclate 100 mg tablet 100 mg PO BID Sharps Container Misc miscellaneous Referrals: Angela Gonzalez MD [Primary Care Provider] - Stand Alone Forms: Work/School Release Print Language: Nepali
[2022-06-29 08:21] LABS: MANUAL DIFF FLAG NO
[2022-06-29 08:23] LABS: Basophils Percent Auto 0.3 % (0-2); Eosinophils Absolute Auto 0.1 X10*3/uL (0.0-0.4); Eosinophils Percent Auto 1.4 % (0-4); Hematocrit 39.6 % (37.0-47.0); Hemoglobin 12.9 g/dl (12.0-16.0); Imm Gran Abs Auto 0.02 X10*3/uL (0.00-0.03); Imm Gran Pct Auto 0.3 % (0.0-0.4); Lymphocytes Absolute Auto 0.9 X10*3/uL (1.2-4.9); Lymphocytes Percent Auto 14.4 % (20-40); Mean Corpuscular HGB Conc 32.6 g/dl (31.0-35.0); Mean Corpuscular Hemoglobin 25.3 pg (27.0-33.0); Mean Corpuscular Volume 77.8 fL (80.0-98.0); Mean Platelet Volume 10.5 fL (9.4-12.3); Monocytes Absolute Auto 0.5 X10*3/uL (0.1-1.2); Monocytes Percent Auto 8.7 % (2-11); Neutrophils Absolute Auto 4.4 x10*3/uL (2.0-8.3); Neutrophils Percent Auto 74.9 % (45-73); Platelet Count 177 X10*3/uL (160-400); Red Blood Count 5.09 X10*6/uL (4.20-5.50); Red Cell Distribution Width 20.5 % (11.0-16.0); White Blood Count 5.9 X10*3/uL (4.8-10.8)
[2022-06-29] MEDS: ondansetron HCL 4 MG/2 ML VIAL IVPUSH (08:25)
[2022-06-29] MEDS: 0.9 % Sodium Chloride 1,000 ML 999 ML IV (08:25)
[2022-06-29 08:35] LABS: COVID-19 Test Negative (Negative); IDNOW Serial# BCCEAD1C
[2022-06-29 08:44] LABS: Alanine Aminotransferase 41 U/L (0-31); Albumin Level 3.9 g/dL (3.5-5.0); Alkaline Phosphatase 59 U/L (39-117); Anion Gap 11 (12-20); Aspartate Amino Transferase 18 U/L (5-31); Bilirubin Total 0.6 mg/dL (0.0-1.0); Blood Urea Nitrogen 10 mg/dL (9-16); Calcium 8.9 mg/dL (8.4-10.2); Carbon Dioxide 27 mmol/L (22-29); Chloride 104 mmol/L (96-108); Creatinine Clr Calc Pharmacy 110.5; Estimated Glomerular Filt Rate > 60; Glucose Random 86 mg/dL (60-115); Potassium 4.1 mmol/L (3.3-5.1); Sodium 138 mmol/L (135-145); Total Protein 6.7 g/dL (6.5-8.0)
[2022-06-29 09:00] LABS: HCG Quantitative 39368 mIU/mL
--- NOTE | 2022-06-29 10:17 | PC.NURSE ---
pt agreeable to pending discharge, no nausea ,vomiting no current abd cramping, no bleeding.
== END 2022-06-29 10:21 | disposition home or self-care (01) ==
PROVIDERS: Physician Assistant Medical; Emergency Provider Emergency Medicine; PCP Student in an Organized Health Care Education/Training Program
DX: O21.0 Mild hyperemesis gravidarum (principal); R10.2 Pelvic and perineal pain; Z3A.01 Less than 8 weeks gestation of pregnancy; Z79.899 Other long term (current) drug therapy; Z20.822 Contact with and (suspected) exposure to COVID-19; Z20.828 Contact with and (suspected) exposure to other viral communicable diseases
CPT/HCPCS: 76801; 76817; 80053; 83735; 84702; 85025; 87635; 96361; 96374; 99284; J2405

== ENCOUNTER 2023-06-30 11:02 | Outpatient (REF) | payer MEDICAID, SELFPAY ==
[2023-06-30 15:44] LABS: Alanine Aminotransferase 21 U/L (0-31); Albumin Level 4.4 g/dL (3.5-5.0); Alkaline Phosphatase 89 U/L (39-117); Anion Gap 8 (12-20); Aspartate Amino Transferase 16 U/L (5-31); Bilirubin Direct 0.2 mg/dL (0.0-0.5); Bilirubin Total 0.5 mg/dL (0.0-1.0); Blood Urea Nitrogen 13 mg/dL (9-16); Calcium 9.3 mg/dL (8.4-10.2); Carbon Dioxide 29 mmol/L (22-29); Chloride 106 mmol/L (96-108); Cholesterol 168 mg/dL (<200); Estimated Glomerular Filt Rate > 60; Glucose Random 84 mg/dL (60-115); HDL Cholesterol 53 mg/dL (>40); LDL Cholesterol Calculated 107 mg/dL (<100); Potassium 3.9 mmol/L (3.3-5.1); Sodium 139 mmol/L (135-145); Total Protein 7.4 g/dL (6.5-8.0); Triglycerides 44 mg/dL (<150)
[2023-06-30 15:59] LABS: Thyroid Stimulating Hormone 2.53 uIU/mL (0.32-4.0)
== END 2023-06-30 11:03 | disposition home or self-care (01) ==
LOC: HO.CHCLDS 11:02
PROVIDERS: Visit Provider Student in an Organized Health Care Education/Training Program
DX: E04.0 Nontoxic diffuse goiter (principal)
CPT/HCPCS: 36415; 80048; 80061; 80076; 84443

== ENCOUNTER 2023-11-13 11:40 | Emergency (ER) | payer MEDICAID, SELFPAY ==
[2023-11-13 11:52] VITALS: BP 116/70; PULSE 98; RESP 18; TEMP 36.9; O2SAT 97; BMI 25.6
--- NOTE | 2023-11-13 11:52 | ED.GENADULT ---
HPI - General Adult General Chief complaint: Abdominal Pain Stated complaint: Diarrhea 3 days Time Seen by Provider: 11/13/23 12:49 Source: patient Mode of arrival: ambulatory Limitations: no limitations History of Present Illness ED Provider: Janneth Rueda APRN HPI narrative: 33-year-old female with a history of Harpal's presents the ER with complaints of 3 days of non bloody diarrhea, nausea and upper abdominal discomfort. Patient denies any fevers, chest pain, abdominal pain, vomiting, urinary symptoms, back pain, neck pain, neck stiffness, skin rash. No recent travel. No sick contact. No recent antibiotic use Related Data Home Medications ?Medication ?Instructions ?Recorded ?Confirmed doxycycline hyclate 100 mg tablet 100 mg PO BID 05/20/22 empty container (Sharps Container) ea miscellaneous 05/20/22 enoxaparin 30 mg/0.3 mL 30 mg subcut DAILY 05/20/22 subcutaneous syringe estradiol 2 mg tablet 2 mg PO BID 05/20/22 fatty acid no.6-fish ml IV 05/20/22 xvs-igxmxiho-ieufbidpfgdux, egg 10 % IV emulsion (Omegaven) follitropin beta 300 unit/0.36 mL 150 unit subcut QPM 05/20/22 subcutaneous cartridge (Follistim AQ) ganirelix 250 mcg/0.5 mL mcg subcut DAILY 05/20/22 subcutaneous syringe meloxicam 15 mg tablet 15 mg PO DAILY 05/20/22 metformin 500 mg tablet,extended 500 mg PO DAILY 05/20/22 release 24 hr methocarbamol 500 mg tablet 500 mg PO QID 05/20/22 morphine ER 80 mg-naltrexone 3.2 1 cap PO 05/20/22 mg capsule, extend release, oral only needle (disp) 22 G 22 gauge x 1 #1,000 ea 05/20/2203/22 (BD Regular Bevel [place]) prednisone 5 mg tablet 5 mg PO BID 05/20/22 syringe with needle 3 mL 18 x 1 #100 ea 05/20/2203/22 (BD Luer-Devin Syringe) Previous Rx's ?Medication ?Instructions ?Recorded cyclobenzaprine 10 mg tablet 10 mg PO TID PRN muscle spasm #10 01/07/22 tabs lidocaine 5 % topical patch 1 patch topical DAILY #15 ea 01/07/22 (Lidoderm) naproxen 500 mg tablet 500 mg PO BID PRN pain #30 tabs 01/07/22 metoclopramide HCl 10 mg tablet 10 mg PO Q6H PRN nausea and 06/29/22 (Reglan) vomiting #10 tabs ondansetron 4 mg disintegrating 4 mg PO Q6H PRN nausea and 11/13/23 tablet vomiting #15 tabs Allergies Allergy/AdvReac Type Severity Reaction Status Date / Time SEAFOOD Allergy Severe ANGIOEDEMA Uncoded 11/13/23 11:54 Review of Systems Review of Systems: Yes all other systems are reviewed and are negative Constitutional: Constitutional: Reports no additional constitutional complaints, Denies body ache(s), Denies chills, Denies fever(s), Denies headache(s) and Denies weakness Eyes: Eyes: Reports no additional eye complaints and Denies change in vision ENT: Reports system reviewed and no additional complaints, except as documented, Denies dizziness, Denies headache(s), Denies nasal congestion, Denies nasal discharge and Denies neck pain Cardiovascular: Cardiovascular: Reports no additional cardiovascular complaints, Denies chest pain, Denies leg edema and Denies dyspnea Respiratory: Respiratory: Reports no additional respiratory complaints, Denies cough and Denies dyspnea Gastrointestinal: Gastrointestinal: Reports no additional gastrointestinal complaints, Reports abdominal pain, Denies hematochezia, Reports diarrhea, Reports nausea and Denies vomiting Genitourinary: Genitourinary: Reports no additional female genitourinary complaints and Denies urinary incontinence Musculoskeletal: Musculoskeletal: Reports no additional musculoskeletal complaints, Denies back pain, Denies arthralgias, Denies joint swelling, Denies neck pain, Denies numbness and Denies tingling Integumentary/Breasts: Skin/Breast: Reports system reviewed and no additional complaints, except as docu and Denies rash Neurologic: Reports system reviewed and no additional complaints, except as documented, Denies Abnormal speech present, Denies dizziness, Denies headache(s), Denies numbness, Denies tingling and Denies weakness PMFSH Past Medical History Attestation statement: The following information was validated with the patient. Source: old records reviewed and nursing notes reviewed Medical History Harpal's disease Vitamin D deficiency Dysphagia Non-toxic multinodular goiter Surgical History Hx of section Family History Family History Father HTN (hypertension) Mother Arthritis Social History Social History Household Members: Children Alcohol intake: unknown Patient Tobacco Use Status: Never used Tobacco Smoked in Last 30 Days: No Use of substances other than those prescribed or required for medical reasons: No Advance Directives: No Advance Directives Information Provided: Yes Do you have a plan to hurt others: No Plan Patient : No Physical Exam ED Vital Signs: Vital Signs - 24 hr 11/13/23 11:52 11/13/23 13:35 Temperature 98.4 F 98.0 F Pulse Rate 98 98 Respiratory Rate 18 18 Blood Pressure 116/70 120/72 Pulse Oximetry 97 97 Oxygen Delivery Method Room Air Room Air BMI result Body Mass Index 25.6 Const General: cooperative, healthy appearing, comfortable and no acute distress Orientation/consciousness: patient oriented x3 Limitations: no limitations HENMT Head: Yes normal to inspection Ears: hearing grossly normal bilaterally General nose exam: Normal external nose present Face and sinus: Yes normal facial exam Mouth: Normal oral and palatal mucosa present Throat: Yes posterior oropharynx normal Eyes General: appearance normal, both eyes and all related structures Pupils: Equal, round and reactive pupils present Neck Neck: Yes normal visual inspection Chest Chest palpation & inspection: normal inspection of the chest Resp Effort & Inspection: normal respiratory effort Auscultation: clear to auscultation bilaterally Cardio Rate: regular rate Rhythm: regular rhythm Peripheral pulses: Peripheral pulses 2+ throughout GI Inspection: Yes normal to inspection Palpation (GI): Soft to palpation and nontender Auscultation: normal bowel sounds Back/Spine/Pelvis Thoracic/Lumbar Spine: thoracic and lumbar spine normal to inspection Skin General skin exam: no rashes or lesions noted Neuro General: patient oriented x3, no focal motor deficits and normal sensation to monofilament Cranial nerves: Yes Equal, round and reactive pupils present Cognition (Neuro): normal cognition Speech: No Abnormal speech present Gait exam (Neuro): Normal gait present Motor exam (neuro): 5/5 motor strength present throughout Extrem General: Yes normal to inspection, Yes no pedal edema and Yes no calf tenderness Course Course Course Narrative: This is a rapid medical exam performed by Jorge Garcia NP: Additional HPI, ROS, PE not included below will be deferred to primary provider. Patient is a 33-year-old female with history of Harpal's, dysphagia presenting to the emergency department with complaint of abdominal pain, nausea, vomiting, and diarrhea since afternoon after eating [employer]. Plan: viral serology,labs, GI panel Medications Administered Discontinued Medications Generic Name Dose Route Start Last Admin Trade Name Lindsay PRN Reason Stop Dose Admin Ondansetron HCl 4 mg 11/13/23 12:59 11/13/23 13:31 Ondansetron Odt 4 Mg Tab.Rapdis TRANSLINGU 11/13/23 13:00 4 mg ONCE ONE Administration Medical Decision Making Medical Decision Making [facility] Narrative: 33-year-old female with a history of Harpal's presents the ER with complaints of 3 days of non bloody diarrhea, nausea and upper abdominal discomfort. Patient denies any fevers, chest pain, abdominal pain, vomiting, urinary symptoms, back pain, neck pain, neck stiffness, skin rash. No recent travel. No sick contact. No recent antibiotic use No focal abdominal pain. VSS. Drinking doron lanre. Will send labs, viral testing Differential Diagnosis Differential Diagnoses: The differential diagnosis associated with the presentation includes viral syndrome. gastroenteritis No risk factors for infectious diarrhea/cdiff No focal abdominal pain to suggest acute abdomen (appy) Admission/Observation Consideration of admission/observation: Escalation of care including admission/observation considered Tolerating PO, well hydrated appearing, no need for admission for fluid management Lab Data [facility] Lab Attestation statement: I reviewed the patient's lab results. 11/13/23 12:04 11/13/23 12:04 Labs: Lab Results 11/13/23 Range/Units 12:04 WBC 4.5 L (4.8-10.8) X10*3/uL RBC 4.80 (4.20-5.50) X10*6/uL Hgb 13.7 (12.0-16.0) g/dl Hct 39.7 (37.0-47.0) % MCV 82.7 (80.0-98.0) fL MCH 28.5 (27.0-33.0) pg MCHC 34.5 (31.0-35.0) g/dl RDW 13.2 (11.0-16.0) % Plt Count 163 (160-400) X10*3/uL MPV 11.4 (9.4-12.3) fL Immature Gran % (Auto) 0.2 (0.0-0.4) % Neut % (Auto) 60.3 (45-73) % Lymph % (Auto) 27.1 (20-40) % [place] % (Auto) 11.6 H (2-11) % Eos % (Auto) 0.4 (0-4) % Baso % (Auto) 0.4 (0-2) % Lymph # (Auto) 1.2 (1.2-4.9) X10*3/uL [place] # (Auto) 0.5 (0.1-1.2) X10*3/uL Eos # (Auto) 0.0 (0.0-0.4) X10*3/uL Baso # (Auto) 0.0 (0.0-0.2) X10*3/uL Abs Immat Gran (auto) 0.01 (0.00-0.03) X10*3/uL Absolute Neuts (auto) 2.7 (2.0-8.3) x10*3/uL Absolute Nucleated RBC 0.000 (0.0-0.012) X10*3/uL Nucleated RBC % (auto) 0.0 (0.0-0.2) /100WBC Sodium 142 (135-145) mmol/L Potassium 3.3 (3.3-5.1) mmol/L Chloride 105 (96-108) mmol/L Carbon Dioxide 24 (22-29) mmol/L Anion Gap 16 (12-20) BUN 9 (9-16) mg/dL Creatinine 0.67 (0.5-1.4) mg/dL Estim Creat Clear Calc 127.8 Estimated GFR > 60 Random Glucose 91 (60-115) mg/dL Calcium 9.3 (8.4-10.2) mg/dL Magnesium 2.0 (1.6-2.6) mg/dL Total Bilirubin 0.5 (0.0-1.0) mg/dL AST 22 (5-31) U/L ALT 19 (0-31) U/L Alkaline Phosphatase 78 (39-117) U/L Total Protein 7.5 (6.5-8.0) g/dL Albumin 4.5 (3.5-5.0) g/dL Influenza Type A (PCR) NEGATIVE (Negative) Influenza Type B (PCR) NEGATIVE (Negative) RSV RNA Qual (PCR) NEGATIVE (Negative) SARS-CoV-2 RNA (RT-PCR) POSITIVE A (Negative) Tests considered The following testing was considered but not selected: No focal abdominal pain to suggest need for CT A/P Prescription Management I considered prescription management with: Antibiotic Discharge Plan Discharge Clinical Impression: COVID-19 Patient Disposition: Home, Self-Care Instructions: COVID-19 (Coronavirus Disease 2019) (ED) Additional Instructions: Increase fluids at home Tylenol for pain Quarantine for 5 days then mask up for an additional 5 days (your employer may have their own rules) Prescriptions: New ondansetron 4 mg tablet,disintegrating 4 mg PO Q6H PRN (Reason: nausea and vomiting) Qty: 15 0RF No Action cyclobenzaprine 10 mg tablet 10 mg PO TID PRN (Reason: muscle spasm) Qty: 10 0RF naproxen 500 mg tablet 500 mg PO BID PRN (Reason: pain) Qty: 30 0RF lidocaine [Lidoderm] 5 % adhesive patch,medicated 1 patch topical DAILY Qty: 15 0RF Rx Instructions: leave on most painful area for up to 12 hrs metoclopramide HCl [Reglan] 10 mg tablet 10 mg PO Q6H PRN (Reason: nausea and vomiting) Qty: 10 0RF Follistim AQ 300 unit/0.36 mL cartridge 150 unit subcut QPM Omegaven 10 % emulsion IV ganirelix 250 mcg/0.5 mL syringe subcut DAILY enoxaparin 30 mg/0.3 mL syringe 30 mg subcut DAILY (DME) BD Regular Bevel [place] 22 gauge x 1 1/2 needle See Rx Instructions .ROUTE .MEDSUPPLY Qty: 1000 Rx Instructions: As directed estradiol 2 mg tablet 2 mg PO BID prednisone 5 mg tablet 5 mg PO BID (DME) BD Luer-Devin Syringe 3 mL 18 x 1 1/2 syringe See Rx Instructions .ROUTE .MEDSUPPLY Qty: 100 Rx Instructions: As directed meloxicam 15 mg tablet 15 mg PO DAILY methocarbamol 500 mg tablet 500 mg PO QID morphine-naltrexone 80-3.2 mg capsule,oral only,ext.rel abhinav 1 cap PO metformin 500 mg tablet extended release 24 hr 500 mg PO DAILY doxycycline hyclate 100 mg tablet 100 mg PO BID Sharps Container Misc miscellaneous Referrals: Angela Gonzalez MD [Primary Care Provider] - 1 week Stand Alone Forms: Work/School Release Interventions: ED Discharge Assessment Last Done: 11/13/23 13:35 Discharge Date/Time: 11/13/23 13:35 Print Language: Kinyarwanda
[2023-11-13 12:09] LABS: MANUAL DIFF FLAG NO
[2023-11-13 12:12] LABS: Basophils Percent Auto 0.4 % (0-2); Eosinophils Percent Auto 0.4 % (0-4); Hematocrit 39.7 % (37.0-47.0); Hemoglobin 13.7 g/dl (12.0-16.0); Imm Gran Abs Auto 0.01 X10*3/uL (0.00-0.03); Imm Gran Pct Auto 0.2 % (0.0-0.4); Lymphocytes Absolute Auto 1.2 X10*3/uL (1.2-4.9); Lymphocytes Percent Auto 27.1 % (20-40); Mean Corpuscular HGB Conc 34.5 g/dl (31.0-35.0); Mean Corpuscular Hemoglobin 28.5 pg (27.0-33.0); Mean Corpuscular Volume 82.7 fL (80.0-98.0); Mean Platelet Volume 11.4 fL (9.4-12.3); Monocytes Absolute Auto 0.5 X10*3/uL (0.1-1.2); Monocytes Percent Auto 11.6 % (2-11); Neutrophils Absolute Auto 2.7 x10*3/uL (2.0-8.3); Neutrophils Percent Auto 60.3 % (45-73); Platelet Count 163 X10*3/uL (160-400); Red Cell Distribution Width 13.2 % (11.0-16.0); White Blood Count 4.5 X10*3/uL (4.8-10.8)
[2023-11-13 12:31] LABS: Alanine Aminotransferase 19 U/L (0-31); Albumin Level 4.5 g/dL (3.5-5.0); Alkaline Phosphatase 78 U/L (39-117); Anion Gap 16 (12-20); Aspartate Amino Transferase 22 U/L (5-31); Bilirubin Total 0.5 mg/dL (0.0-1.0); Blood Urea Nitrogen 9 mg/dL (9-16); Calcium 9.3 mg/dL (8.4-10.2); Carbon Dioxide 24 mmol/L (22-29); Chloride 105 mmol/L (96-108); Creatinine Clr Calc Pharmacy 127.8; Estimated Glomerular Filt Rate > 60; Glucose Random 91 mg/dL (60-115); Potassium 3.3 mmol/L (3.3-5.1); Sodium 142 mmol/L (135-145); Total Protein 7.5 g/dL (6.5-8.0)
[2023-11-13 12:49] LABS: Influenza A PCR NEGATIVE (Negative); Influenza B PCR NEGATIVE (Negative); Resp Syncy Virus RNA Qual PCR NEGATIVE (Negative); SARS COV2 PCR INHOUSE POSITIVE (Negative)
[2023-11-13] MEDS: Ondansetron ODT 4 MG TAB.RAPDIS TRANSLINGU (13:31)
[2023-11-13 13:35] VITALS: BP 120/72; PULSE 98; RESP 18; TEMP 36.7; O2SAT 97
== END 2023-11-13 13:35 | disposition home or self-care (01) ==
PROVIDERS: Registered Nurse Emergency; Emergency Provider Emergency Medicine; PCP Student in an Organized Health Care Education/Training Program
DX: U07.1 COVID-19 (principal); R11.2 Nausea with vomiting, unspecified; R10.9 Unspecified abdominal pain; Z79.899 Other long term (current) drug therapy
CPT/HCPCS: 0241U; 80053; 83735; 85025; 99283; 99284

== ENCOUNTER 2024-07-23 11:04 | Outpatient (REF) | payer MEDICAID, SELFPAY ==
--- OUTSIDE RECORDS SUMMARY | 2024-07-23 12:50 | XMS_ITS | Encounter Summary ---
Author Organization [employer] Address [address] [place] [address] Care Team Providers Care Printed Circuit Board Assembler Name Role Phone Angela Gonzalez MD Primary Care Provider [phone] Reason for Visit * Reason Comments Annual Exam Encounter Details Date Type Department Care Team ([facility] Contact Info) Description 07/23/2024 10:45 AM EDT Office Visit [facility]S [address] [place], [place] [id number] Angela Gonzalez MD [address] [place] [address] Anxiety (Primary Dx); Dietary counseling; Exercise counseling; Moderate episode of recurrent major depressive disorder (CMS/HCC); Screen for STD (sexually transmitted disease); Encounter for annual wellness visit Social History Tobacco Use Types Packs/Day Years Used Date Smoking Tobacco: Never Passive Smoke Exposure: Never Smokeless Tobacco: Never Tobacco Cessation:Counseling Given: Not Answered Alcohol Use Standard Drinks/Week Comments Never 0 (1 standard drink = 0.6 oz pur e alcohol) Depression Answer Date Recorded Patient Health Questionnaire-9 Score 5 07/23/2024 Patient Health Questionnaire-9 Score 5 07/23/2024 Last PHQ-9: Questionnaire Data Not on file 0 07/23/2024 Housing Stability Answer Date Recorded What is your housing situation today? I have wei yañez 07/23/[address] you li ve. Do you have problems with any of the following? None of the above 07/23/2024 Food Insecurity Answer Date Recorded Within the past 12 months, y ou worried that your food would run out before you got money to buy more: Never True 07/23/2024 Within the past 12 months,th e food you bought just didn't last and you didn't have enough money to get more: Never True 07/2024 Transportation Answer Date Recorded In the past 12 months, has l ack of transportation kept you from medical appts, meetings, work or from getting things needed for daily living? No 07/23/2024 Utilities Answer Date Recorded In the past 12 months, has t he electric, gas, oil or water company threatened to shut off services in your home? No 07/23/2024 Depression Answer Date Recorded Patient Health Questionnaire-2 Score 2 07/23/2024 Internet Access Answer Date Recorded Internet Access Q1 No 07/23/2024 Internet Access Q2 I do not want or need it 07/2024 Comments No Sex and Gender Information Value Date Recorded Sex Assigned at Female 01/18/2022 10:32 AM EDT Legal Sex Female 10:32 AM EDT Gender Identity Female 01/18/2022 10:32 AM EDT Sexual Orientation Straight 10/25/2023 11 :17 AM EDT documented as of this encounter Last Filed Vital Signs Vital Sign Reading Time Taken Comments Blood Pressure 116/74 07/23/2024 10:44 AM EDT Pulse 84 07/23/2024 10:44 AM EDT Temperature 36.8 ??C (98.2 ??F) 07/23/2024 10:44 AM E DT Respiratory Rate 18 07/23/2024 10:44 AM EDT Oxygen Saturation 99% 07/23/2024 10:44 AM EDT Inhaled Oxygen Concentration - - Weight 77.1 kg (170 lb) 07/23/2024 10:44 AM EDT Height 167.6 cm (5' 6 ) 07/23/2024 10:44 AM EDT Body Mass Index 27.44 07/23/2024 10:44 AM EDT documented in this encounter Progress Notes * Angela Gonzalez MD - 07/23/2024 10:45 AM EDT Subjective Patient ID: Sonia Bates is a 33 y.o. female who presents for No chief complaint on file.. Anxiety Presents for follow-up visit. Symptoms include nervous/anxious behavior and panic. Patient reports no chest pain, palpitations or shortness of breath. Symptoms occur most days. The quality of sleep is good. Nighttime awakenings: none. Review of Systems Constitutional: Negative. Respiratory: Negative. Negative for shortness of breath. Cardiovascular: Negative for chest pain and palpitations. Gastrointestinal: Negative. Genitourinary: Negative. Musculoskeletal: Negative for neck pain. Neurological: Negative for headaches. Psychiatric/Behavioral: The patient is nervous/anxious. Objective Physical Exam Constitutional: Appearance: Normal appearance. HENT: Head: Normocephalic and atraumatic. Right Ear: Tympanic membrane normal. Left Ear: Tympanic membrane normal. Mouth/Throat: Mouth: Mucous membranes are moist. Eyes: Pupils: Pupils are equal, round, and reactive to light. Cardiovascular: Rate and Rhythm: Normal rate and regular rhythm. Pulmonary: Effort: Pulmonary effort is normal. Breath sounds: Normal breath sounds. Abdominal: General: Abdomen is flat. Palpations: Abdomen is soft. Musculoskeletal: General: Normal range of motion. Skin: General: Skin is warm. Neurological: General: No focal deficit present. Mental Status: She is alert. Psychiatric: Mood and Affect: Mood normal. Behavior: Behavior normal. Assessment/Plan Diagnoses and all orders for this visit: Anxiety Comments: Zoloft increased to 75mg daily Strongly advised N for better managment of Anxiety Dietary counseling Exercise counseling Maintain a low-sodium diet (less than 2 grams per day). Maintain a regular cardiovascular exercise program. Advised to maintain a low-fat, low-cholesterol diet. Counseled regarding importance of weight loss. Counseled re: potential co-morbidities including cardiovascular disease Moderate episode of recurrent major depressive disorder (CMS/HCC) Screen for STD (sexually transmitted disease) - HIV-1/2 Antigen and Antibodies, Fourth Generation, with Reflexes; Future - Hepatitis C Antibody with Reflex to HCV, RNA, Quantitative, Real-Time PCR; Future Other orders - sertraline (Zoloft) 50 MG tablet; Take 1 tablet (50 mg) by mouth Once per day. - naproxen (Naprosyn) 500 MG tablet; Take 1 tablet (500 mg) by mouth 2 times daily. - sertraline (Zoloft) 25 MG tablet; Take 1 tablet (25 mg) by mouth Once per day. documented in this encounter Plan of Treatment Upcoming Encounters Date Type Department Care Team (Late st Contact Info) Description 10/29/2024 11:30 AM EDT Telemedicine [facility] [address] [place] [address] Angela Gonzalez MD [address] [place] [address] Scheduled Orders Name Type Priority Associated Diagnoses Orde r Schedule HIV-1/2 Antigen and Antibodies, Fourth Generation, with Reflexes Lab Routine Screen for STD (sexually transmitted disease) Expected: 07/23/2024 (Approximate), Expires: 07/23/2025 Hepatitis C Antibody with Reflex to HCV, RNA, Quantitative, Real-Time PCR Lab Routine Screen for STD (sexually transmitted disease) Expected: 07/23/2024, Expires: 07/23/2025 documented as of this encounter Visit Diagnoses Diagnosis Anxiety- Primary Anxiety state, unspecified Dietary counseling Dietary surveillance and counseling Exercise counseling Moderate episode of recurrent major depressive disorder (CMS/HCC) Screen for STD (sexually transmitted disease) Screening examination for venereal disease Encounter for annual wellness visit documented in this encounter Additional Health Concerns Assessment Noted Time PHQ-9 Depression Total Score: 5 07/24/19 25 10:46 AM EDT documented as of this encounter Care Teams Printed Circuit Board Assembler Relationship Specialty Start Date End Date Angela Gonzalez MD [address] [place] [id number] PCP - General Family Medicine 03/21/18 documented as of this encounter
--- OUTSIDE RECORDS SUMMARY | 2024-07-23 12:50 | XMS_ITS | Encounter Summary ---
Author Organization [employer] Address [address] [place] [address] Care Team Providers Care Filter Tip Inspector Name Role Phone Angela Gonzalez MD Primary Care Provider [phone] Encounter Details Date Type Department Care Team (Latest Contact Info) Description 07/23/2024 Travel Social History Tobacco Use Types Packs/Day Years Used Date Smoking Tobacco: Never Passive Smoke Exposure: Never Smokeless Tobacco: Never Alcohol Use Standard Drinks/Week Comments Never 0 [...] AM EDT documented as of this encounter Plan of Treatment Upcoming Encounters Date Type Department Care Team (Late st Contact Info) Description 10/29/2024 11:30 AM EDT Telemedicine [facility] [address] [place] [address] Angela Gonzalez MD [address] [place] [address] documented as of this encounter Visit Diagnoses Not on filedocumented in this encounter Additional Health Concerns Assessment Noted Time PHQ-9 Depression Total Score: 5 07/24/19 25 10:46 AM EDT documented as of this encounter Care Teams Filter Tip Inspector Relationship Specialty Start Date End Date Angela Gonzalez MD [address] [place] [id number] PCP - General Family Medicine 03/21/18 documented as of this encounter
--- OUTSIDE RECORDS SUMMARY | 2024-07-23 12:50 | XMS_ITS | Encounter Summary ---
Author Organization [employer] Address [address] [place] [address] Care Team Providers Care Maintenance And Utilities Supervisor Name Role Phone Angela Gonzalez MD Primary Care Provider [phone] Reason for Visit * Reason Onset Date Comments Appointment Request 06/18/2024 Encounter Details Date Type Department Care Team ([facility] st Contact Info) Description 06/18/2024 Telephone [facility] MEDICINE [address] [place] [address] Angela Gonzalez MD [address] [place] [address] Appointment Request Social History Tobacco Use Types Packs/Day Years Used Date Smoking Tobacco: Never Passive Smoke Exposure: Never Smokeless Tobacco: Never Alcohol Use Standard Drinks/Week Comments Never 0 (1 standard drink = 0.6 oz pur e alcohol) Depression Answer Date Recorded Patient Health Questionnaire-9 Score 18 10/20/2023 Patient Health Questionnaire-9 Score 18 10/20/2023 Last PHQ-9: Questionnaire Data Not on file 0 10/20/2023 Housing Stability Answer Date Recorded What is your housing situation today? I have wei yañez 03/11/[address] you li ve. Do you have problems with any of the following? None of the above 03/11/2023 Food Insecurity Answer Date Recorded Within the past 12 months, y ou worried that your food would run out before you got money to buy more: Never True 03/11/2023 Within the past 12 months,th e food you bought just didn't last and you didn't have enough money to get more: Never True Transportation Answer Date Recorded In the past 12 months, has l ack of transportation kept you from medical appts, meetings, work or from getting things needed for daily living? No 03/11/2023 Utilities Answer Date Recorded In the past 12 months, has t he electric, gas, oil or water company threatened to shut off services in your home? No 03/11/2023 Depression Answer Date Recorded Patient Health Questionnaire-2 Score 3 10/20/2023 Comments Unknown Sex and Gender Information Value Date Recorded Sex Assigned at Female 01/18/2022 10:32 AM EDT Legal Sex Female 10:32 AM EDT Gender Identity Female 01/18/2022 10:32 AM EDT Sexual Orientation Straight 10/25/2023 11 :17 AM EDT documented as of this encounter Miscellaneous Notes * Telephone Encounter - Sherly Bates - 06/18/2024 9:06 AM EDT Tc from pt requesting appointment Appointment Type - Ear Lavage (30 min) Pt denied triage no symptoms documented in this encounter Plan of Treatment Upcoming Encounters Date Type Department Care Team (Late st Contact Info) Description 10/29/2024 11:30 AM EDT Telemedicine [facility] MED [facility] PEDS [address] [place] [address] Angela Gonzalez MD [address] [place] [address] documented as of this encounter Visit Diagnoses Not on filedocumented in this encounter Additional Health Concerns Assessment Noted Time PHQ-9 Depression Total Score: 18 024 8:42 AM EDT documented as of this encounter Care Teams Maintenance And Utilities Supervisor Relationship Specialty Start Date End Date Angela Gonzalez MD [address] [place] [address] PCP - General Family Medicine 03/21/18 documented as of this encounter
--- OUTSIDE RECORDS SUMMARY | 2024-07-23 12:50 | XMS_ITS | Clinical Summary ---
Author Organization [employer] Address [address] [place] [address] Care Team Providers Care Scientific Process Operator Name Role Phone Angela Gonzalez MD Primary Care Provider [phone] Allergies Active Allergy Reactions Criticality Noted Date Comments Povidone-Iodine 07/13/2022 Shellfish Allergy 07/13/2022 Medications * This document contains information received from the source organization and may not represent a complete record from that organization. hydrOXYzine HCl (Atarax) 25 MG tablet TAKE 1 TABLET (25 MG) BY MOUTH IF NEEDED IN THE MORNING, AT NOON, AND AT BEDTIME FOR ITCHING. 90 tablet 2 01/25/20 24 Active sertraline (Zoloft) 50 MG tablet Take 1 tablet (50 mg) by mouth Once per day. 90 tablet 1 07/24/19 25 Active naproxen (Naprosyn) 500 MG tablet Take 1 tablet (500 mg) by mouth 2 times daily. 60 tablet 07/24/19 25 025 Active sertraline (Zoloft) 25 MG tablet Take 1 tablet (25 mg) by mouth Once per day. 30 tablet 11 07/24/19 25 026 Active sertraline (Zoloft) 50 MG tablet TAKE 1 TABLET (50 MG) BY MOUTH ONCE PER DAY. 90 tablet 1 04/13/19 25 025 Discontinued(Re order (will not trigger notification to Pharmacy)) Active Problems Problem Noted Date Diagnosed Date Blepharitis 10/19/2023 Anxiety 10/19/2023 Goiter diffuse 06/30/2023 Moderate episode of recurrent major depressive d isorder 08/02/2022 Assessment & Plan (10/20/2023 8:55 AM EDT): PROGRESS NOTE: ID: Sonia is a 33 y.o. choose not to disclose-identified cis-female with previous documented hx of Depression and Anxiety services including OP Psychotherapy who presents for Anxiety and Depression During IBH Consult Sonia presenting with depressed mood, loss of interests/pleasure , changes in sleep difficulty falling asleep, change in appetite or weight reduce appetite, psychomotor agitation, trouble concentrating, fatigue/loss of energy, hopelessness and excessive worry/anxiety, difficulty controlling worry, restless/keyed up/On edge, easily fatigued, difficulty concentrating/Mind going blank , irritability, muscle tension, and sleep disturbance difficulty falling asleep; for a period of 18+ mo, for all symptoms in the context of starting old job in few weeks, financial struggles . PLAN: New/Additional Services needed PCP management Off-site services for Behavioral Health Integration Plan External OP therapy referral and OP psychiatry Referral Patient Self Plan Patient to utilize skills provided in intervention , Patient to reach out to [facility] team as needed, Comply with medication , and Patient to engage in OP therapy Assessment & Plan (10/19/2023 3:28 PM EDT): Advised to follow up with therapist for ongoing care. Prescribing Atarax and Zoloft, f/u with PCP. Relevant Medications Hydroxyzine HCI (Atarax) 25 MG tablet Sertraline (Zoloft) 50 MG tablet Assessment & Plan (08/19/2022 9:12 AM EDT): Assessment and Plan: Sonia was engaged with active reflective listening and open-ended questions. Assessed symptoms, risks, and social supports with direct questions. Discussed current symptoms intensity and frequency. Emotions were normalized and validated. Sonia identified family support as protective factors. Provided psychoeducation around depression and anxiety coping skills. I also connected her with RN-DS, mindfulness provider and was nikki to practice some coping mechnanisms with her and use aroma therapy to control stress. Discussed OP therapy and Medication Management, she agreed to Ind. Therapy referral, not sure about Med management due to her been . Provided education around integrated medicine and the options of follow up BE's as needed. Provided contact information should questions or concerns arise. Plan: Sonia will engage in effective coping mechanisms of to address depression and anxiety sxs. Referral to [facility] will be placed for Ind. Therapy. At this time Sonia Bates meets criteria for Visit Diagnoses: Problem List Items Addressed This Visit Other Mixed anxiety and depressive disorder Patient ready to address current needs Yes Strengths include that Sonia is in action state of change and is willing to engage in services. PLAN: 1. Follow up with [facility]: Recommended for follow-up: per patient request 2. Patient goal is is to become mentally stable and reduce her anxiety 3. Behavioral Recommendations a. Referral to [facility] for Ind. Therapy, appt on 08/24/22 b. Follow up with [facility] as needed. c. Utilizing coping mechanisms Assessment & Plan (08/02/2022 11:43 AM EDT): Progress Note: Sonia is a 31-year-old, [place] speaking female that was referred for a behavioral health consult by his PCP Dr Weir due to increase in anxiety and depressive sxs. She moved from [place] on 2018, has been working as a pre-schoolhigh school french teacher for 4 years, has not family here, only immediate family. She verbalized sxs such as chest tight, palpitations, sweats, over sleeping, little energy, poor appetitie, but is 11 weeks and is not able to hold food down, trouble concentrating, feeling anxious, on edge, persistent worry, trouble relaxing, easily annoyed, feeling afraid. She denies SI, HI, DAVE, ETIENNE or self-harm at this time. Symptoms do not appear to be due to substance use or other medical disorder. Per DSM-5 diagnostic criteria, and given the above information, Sonia has been provisionally diagnosed with Mixed Anxiety and Depressive Disorder due to report of experiencing the above mentioned sxs. Assessment and Plan: Sonia was engaged with active reflective listening and open-ended questions. Assessed symptoms, risks, and social supports with direct questions. Discussed current symptoms intensity and frequency. Emotions were normalized and validated. Sonia identified family support as protective factors. Provided psychoeducation around depression and anxiety coping skills. Discussed OP therapy and Medication Management, she agreed to Ind. Therapy referral, not sure about Med management due to her been . Provided education around integrated medicine and the options of follow up BE's as needed. Provided contact information should questions or concerns arise. Plan: Sonia will engage in effective coping mechanisms of to address depression and anxiety sxs. Referral to [facility] will be placed for Ind. Therapy. She will contact [facility] For support as needed. History of bilateral tubal ligation 07/13/2022 Procreative management counseling 07/13/2022 Resolved Problems Problem Noted Date Diagnosed Date Resolved Date Desire for 07/13/2022 024 Impacted cerumen of left ear 07/13/2022 06/30/2023 Assessment & Plan (07/13/2022 2:54 PM EDT): Patient with cerumen impaction of L ear upon examination. Will send debrox drops. Rhinosinusitis 07/13/2022 06/30/2023 Assessment & Plan (07/13/2022 2:53 PM EDT): Patient previously started on antibiotics s/p urgent care visit, on day x2 of antibiotic treatment. Advised to continue treatment to completion Encounters Date Type Department Care Team Description 07/23/2024 10:45 AM EDT Office Visit [facility] [address] [place] [address] Angela Gonzalez MD Anxiety (Primary Dx); Dietary counseling; Exercise counseling; Moderate episode of recurrent major depressive disorder (CMS/HCC); Screen for STD (sexually transmitted disease); Encounter for annual wellness visit 07/23/2024 Travel 07/16/2024 Patient Outreach [facility] [address] [place] [address] Angela Gonzalez MD Pre-visit Planning (Pre visit planning LVM ) 06/18/2024 Telephone [facility] [address] [place] [address] Angela Gonzalez MD Appointment Request 06/01/2024 Population Health Risk Score [facility] ([facility] Department [address] [phone] Provider, Population Health Generic from Last 3 Months Immunizations Name Administration Dates Next Due DTaP 09/04/1996, 4,02/24/1993,1992,1992 Hep B, Adolescent or Pediatric 1992 Hep B, adult 08/24/1993,01/26/1993 HiB, unspecified 09/04/1996,06/03/1993, 3 Hib (PRP-T) 1992 IPV 1992 MMR 09/04/1996,08/24/1993 TD (adult), 2 Lf tetanus tox oid, preservative free, adsorbed 08/20/2020 Tdap 06/02/2005 Varicella 06/02/2005 Family History Medical History Relation Name Comments Hypertension Father Thyroid disease Paternal Grandmother Relation Name Status Comments Father Paternal Grandmother Social History Tobacco Use Types Packs/Day Years [...] Orientation Straight 10/25/2023 11 :17 AM EDT Last Filed Vital Signs Vital Sign Reading [...] Mass Index 27.44 07/23/2024 10:44 AM EDT Plan of Treatment Upcoming Encounters Date Type Department Care Team (Late st Contact Info) Description 10/29/2024 11:30 AM EDT Telemedicine [facility] [address] [place] [address] Angela Gonzalez MD [address] [place] [address] Health Maintenance Due Date Last Done Comments HIV Screening 1992 IPV Vaccines (2 of 3 - 4-dose series) 1992 1992 Family Planning (PISQ) 08/19/2007 Hepatitis C Screening 2010 COVID-19 Vaccine ( season) 2023 10/27/2020, 09/29/2020 Influenza Vaccine (#1) 2023 Cervical Cancer Screening 06/30/2024 HPV/Cotest 06/30/2024 Pap Smear 06/30/2024 06/30/2021 Alcohol/Substance Use Screening 07/23/2025 07/23/2024 Depression Screening 07/23/2025 07/23/2024, 07/24/19 25 SDOH Screening 07/23/2025 07/23/2024 Tobacco Screening 07/23/2025 07/23/2024 DTaP/Tdap/Td Vaccines (8 - Td or Tdap) 08/20/2030 08/20/2020, 06/02/2005, 09/04/1996, Additional history exists Zoster Vaccines (1 of 2) 2042 RSV Patients and Patients Aged 60 years or older (1 - 1-dose 75+ series) 08/19/2067 Hepatitis B Vaccines Completed 08/24/1993, 01/26/1993, 1992 HIB Vaccines Completed 09/04/1996, 05/19, 1992, Additional history exists HPV Vaccines Aged Out No longer eligi ble based on patient's age to complete this topic Hepatitis A Vaccines Aged Out No long er eligible based on patient's age to complete this topic Meningococcal Vaccine Aged Out No lauren radha eligible based on patient's age to complete this topic Pneumococcal Vaccine: Pediatrics (0 to 5 Years) and At-Risk Patients (6 to 49) Years) Aged Out No longer eligible based on patient's age to complete this topic RSV under 20 months Aged Out No longe r eligible based on patient's age to complete this topic Rotavirus Vaccines Aged Out No longer eligible based on patient's age to complete this topic Procedures Procedure Name Priority Date/Time Associated Diagnosis Comments THINPREP IMAGING SYSTEM PAP Routine 06/30/2021 3:25 PM EDT from Last 3 Months or Most Recently Relevant to Health Maintenance Results * THINPREP TIS PAP (06/30/2021 3:25 PM EDT) Clinical Information: None given [facility] COMMENT SEE COMMENT [facility] Comment: EXPLANATORY NOTE: ? The Pap is a screening test for cervical cancer. It is ?? not a diagnostic test and is subject to false negative ?? and false positive results. It is most reliable when a ?? satisfactory sample, regularly obtained, is submitted ?? with relevant clinical findings and history, and when ?? the Pap result is evaluated along with historic and ?? current clinical information. ?? COMMENT: This Pap test has been evaluated with computer assisted technology. [facility] O And M Supervisor : SEE COMMENT [facility] Comment: WAC, CT(ASCP) CT screening location: [address] ??[id number] Interpretation/R esult: Negative for intraepithelial lesion or malignancy. [facility] LMP: 06/24/2021 [facility] Prev. BX: NONE GIVEN [facility] Prev. PAP: NIL 2018 [facility] SOURCE: Cervix [facility] Statement Of Adequacy: SEE COMMENT [facility] Comment: Satisfactory for evaluation. Endocervical/transformation zone component present. 06/30/2021 3:25 PM EDT us Gela Foster CNM LAB PATHOLOGY ORDERABLES Final Result [facility] [address] from Last 3 Months or Most Recently Relevant to Health Maintenance Insurance [facility] [address] [place] [address] [place] [address] Care Teams Scientific Process Operator Relationship Specialty Start Date End Date Angela Gonzalez MD [address] [place] [address] [place] [id number] PCP - General Family Medicine 03/21/18
[2024-07-24 04:18] LABS: HIV AB/AG Nonreactive (Nonreactive); HIV Num 1 0.08 S/CO (0.00-0.99); ~HepC Num1 0.24 S/CO (0.00-0.79); ~Hepatitis C Antibody Nonreactive (Nonreactive)
== END 2024-07-23 11:05 | disposition home or self-care (01) ==
LOC: HO.CHCLDS 11:04
PROVIDERS: Visit Provider Student in an Organized Health Care Education/Training Program
DX: Z11.3 Encounter for screening for infections with a predominantly sexual mode of transmission (principal)
CPT/HCPCS: 36415; 86803; 87389